=== PATIENT | female | born 1965 | race Caucasian/White ===

== ENCOUNTER → 2016-04-23 | Outpatient (CLI) | payer OTHER ==
--- NOTE | 2016-04-23 13:50 | XR ---
EXAMINATION TYPE: XR knee limited bilateral DATE OF EXAM: 04/23/2016 1:38 PM CLINICAL HISTORY: Bilateral knee pain, left worse than right. TECHNIQUE: 2 views of the bilateral knees are obtained. COMPARISON: None. FINDINGS: There is no acute fracture/dislocation evident in either knee. There is mild symmetric keyur nt space loss patellofemoral compartments. There is mild symmetric joint space loss medial tibiofemor al compartments. No significant spurring is present bilaterally. The overlying soft tissue appears u nremarkable. IMPRESSION: There is symmetric mild degenerative changes in both knees.
--- NOTE | 2016-04-26 09:23 | MM ---
Reason for exam: screening (asymptomatic). Baseline mammogram. Physical Findings: Nurse did not find any significant physical abnormalities on exam. MG Screening Mammo w CAD Bilateral CC, MLO, and XCCL view(s) were taken. There are scattered fibroglandular densities. There is no discrete abnormality. No significant changes when compared with prior studies. ASSESSMENT: Negative, BI-RAD 1 RECOMMENDATION: Routine screening mammogram of both breasts in 1 year.
== END | disposition home or self-care (01) ==
LOC: RADXRMAIN 13:18
PROVIDERS: ATTEND Family Medicine
DX: Z12.31 Encounter for screening mammogram for malignant neoplasm of breast (principal); M25.861 Other specified joint disorders, right knee; M25.862 Other specified joint disorders, left knee
CPT/HCPCS: 73560; G0202

== ENCOUNTER → 2016-06-18 | Outpatient (CLI) | payer OTHER ==
--- NOTE | 2016-06-18 15:33 | MR ---
EXAMINATION TYPE: MR knee LT wo con DATE OF EXAM: 06/18/2016 9:57 AM COMPARISON: Plain film April 2016 HISTORY: Left knee pain TECHNIQUE: Multiplanar, multisequence imaging of the left knee is performed without IV contrast. FINDINGS: MEDIAL MENISCUS: Stellate increased signal is present at the lateral and posterior aspect of the post erior horn of the medial meniscus compatible with tear. LATERAL MENISCUS: Anterior and posterior horns are intact without tear. CRUCIATE LIGAMENTS: The anterior and posterior cruciate ligaments are intact and unremarkable. COLLATERAL LIGAMENTS: The medial collateral ligament and lateral collateral ligament complex are inta ct and unremarkable. EXTENSOR MECHANISM: Visualized quadriceps and patellar tendons are intact. EFFUSION: Suprapatellar joint effusion is small. POPLITEAL CYST: No popliteal/jimenez cyst. TRICOMPARTMENT SPACES: Intact CARTILAGE: No significant chondromalacia is evident BONE MARROW SIGNAL: Subchondral cyst formation present in the proximal tibia at the intercondylar reg ion. OTHER: No additional significant abnormality is appreciated. IMPRESSION: Findings suggest tear of the posterior horn of the medial meniscus as described. Joint effusion.
== END | disposition home or self-care (01) ==
LOC: RADMRIMAIN 09:02
PROVIDERS: ATTEND Physician Assistant
DX: M25.462 Effusion, left knee (principal)

== ENCOUNTER 2016-10-15 12:12 | Emergency (ER) | payer OTHER ==
[2016-10-15] MEDS ORDERED: HYDROmorphone 1 MG/ML 1 ML SYRINGE IVP STA (12:44)
[2016-10-15] MEDS ORDERED: ONDANSETRON 4 MG/2 ML VIAL IVP STA (12:44)
[2016-10-15] MEDS ORDERED: SODIUM CHLORIDE 0.9% 1,000 ML IV STA (12:44)
--- NOTE | 2016-10-15 12:47 | ED ---
General Adult HPI - General Chief complaint: Abdominal Pain Stated complaint: Abd Pain Time Seen by Provider: 10/15/16 12:38 Source: patient, RN notes reviewed Mode of arrival: ambulatory Limitations: no limitations - History of Present Illness Initial comments: Patient's 51-year-old female who presents emergency room today with chief complaint of abdominal pain times one week. She does admit that she's been experiencing some pain in the lower abdomen. States that she's had some diarrhea over the last 3 days. Does admit that she seemed her family doctor was started on Cipro and Flagyl just 2 days ago. Patient states pain getting worse. States family doctor advised come here to the emergency room. Patient does admit to some pain that radiates around to the back that started approximate 4 days ago. Patient denies any other complaints symptoms at this time. Patient denies any recent fever, chills, shortness of breath, chest pain, back pain, abdominal pain, nausea or vomiting, numbness or tingling, dysuria or hematuria, constipation or diarrhea, headaches or visual changes, or any other complaints. - Related Data Home Medications Medication Instructions Recorded Confirmed Losartan/Hydrochlorothiazide 1 tab PO DAILY 11/13/15 10/15/16 [Hyzaar 100-25 Tablet] Montelukast Sodium [Singulair] 10 mg PO HS 11/13/15 10/15/16 Ciprofloxacin HCl [Cipro] 500 mg PO BID 10/15/16 10/15/16 Pantoprazole [Protonix] 40 mg PO DAILY 10/15/16 10/15/16 Sucralfate [Carafate] 1 gm PO TID 10/15/16 10/15/16 Tiotropium 18 Mcg/Puff [Spiriva] 1 cap INHALATION RT-DAILY 10/15/16 10/15/16 metroNIDAZOLE [Flagyl] 500 mg PO Q8HR 10/15/16 10/15/16 Allergies Allergy/AdvReac Type Severity Reaction Status Date / Time cephalexin monohydrate Allergy Rash/Hives,yeast Verified 10/15/16 13:19 [From Keflex] infection latex Allergy Itching, Verified 10/15/16 13:19 hives pecan,almonds Allergy Severe Anaphylaxis Uncoded 11/13/15 15:04 Review of Systems ROS Statement: Those systems with pertinent positive or pertinent negative responses have been documented in the HPI. ROS Other: All systems not noted in ROS Statement are negative. Past Medical History Past Medical History: No Reported History History of Any Multi-Drug Resistant Organisms: None Reported Past Surgical History: Orthopedic Surgery Past Psychological History: No Psychological Hx Reported Smoking Status: Never smoker Past Alcohol Use History: None Reported Past Drug Use History: None Reported General Exam - General Exam Comments Initial Comments: General: The patient is awake and alert, in no distress, and does not appear acutely ill. Eye: Pupils are equal, round and reactive to light, extra-ocular movements are intact. No nystagmus. There is normal conjunctiva bilaterally. No signs of icterus. Ears, nose, mouth and throat: There are moist mucous membranes and no oral lesions. Neck: The neck is supple, there is no tenderness or JVD. Cardiovascular: There is a regular rate and rhythm. No murmur, rub or gallop is appreciated. Respiratory: Lungs are clear to auscultation, respirations are non-labored, breath sounds are equal. No wheezes, stridor, rales, or rhonchi. Gastrointestinal: Normal appearance. Normal bowel sounds. Abdomen soft on palpation. Patient does have tenderness midline lower abdomen. Mild tenderness in the right CVA. No rebound or guarding. Musculoskeletal: Normal ROM, no tenderness. Strength 5/5. Sensation intact. Pulses equal bilaterally 2+. Neurological: A&O x 3. CN II-XII intact, There are no obvious motor or sensory deficits. Coordination appears grossly intact. Speech is normal. Skin: Skin is warm and dry and no rashes or lesions are noted. Psychiatric: Cooperative, appropriate mood & affect, normal judgment. Limitations: no limitations Course Vital Signs 10/15/16 10/15/16 12:24 15:25 Temperature 99.5 F 97.5 F L Pulse Rate 88 70 Respiratory 20 16 Rate Blood Pressure 165/91 139/94 O2 Sat by Pulse 98 96 Oximetry Medical Decision Making - Medical Decision Making CT reviewed unremarkable for any acute findings to account for patient's symptoms at this time. Patient currently on Cipro Flagyl. Patient's labs been reviewed. At this time patient is advised to continue with his antibiotics and follow-up the family doctor over the next 2 days. Advised return here to emergency room if any symptoms increase or worsen or for any other concerns. Patient states understanding and is in agreement with plan. - Lab Data Result diagrams: 10/15/16 13:03 10/15/16 13:03 Lab Results 10/15/16 10/15/16 10/15/16 Range/Units 13:03 13:03 13:03 WBC 10.6 (3.8-10.6) k/uL RBC 5.13 (3.80-5.40) m/uL Hgb 14.6 (11.4-16.0) gm/dL Hct 43.9 (34.0-46.0) % MCV 85.5 (80.0-100.0) fL MCH 28.4 (25.0-35.0) pg MCHC 33.3 (31.0-37.0) g/dL RDW 15.3 (11.5-15.5) % Plt Count 374 (150-450) k/uL Neutrophils % 65 % Lymphocytes % 25 % Monocytes % 6 % Eosinophils % 1 % Basophils % 0 % Neutrophils # 6.9 (1.3-7.7) k/uL Lymphocytes # 2.7 (1.0-4.8) k/uL Monocytes # 0.6 (0-1.0) k/uL Eosinophils # 0.1 (0-0.7) k/uL Basophils # 0.1 (0-0.2) k/uL Sodium 139 (137-145) mmol/L Potassium 3.5 (3.5-5.1) mmol/L Chloride 99 (98-107) mmol/L Carbon Dioxide 27 (22-30) mmol/L Anion Gap 13 mmol/L BUN 14 (7-17) mg/dL Creatinine 0.72 (0.52-1.04) mg/dL Est GFR (MDRD) Af Amer >60 (>60 ml/min/1.73 sqM) Est GFR (MDRD) Non-Af >60 (>60 ml/min/1.73 sqM) Glucose 82 (74-99) mg/dL Plasma Lactic Acid [place] (0.7-2.0) mmol/L Calcium 9.4 (8.4-10.2) mg/dL Total Bilirubin 0.6 (0.2-1.3) mg/dL AST 42 H (14-36) U/L ALT 49 (9-52) U/L Alkaline Phosphatase 79 (38-126) U/L Total Protein 8.0 (6.3-8.2) g/dL Albumin 4.3 (3.5-5.0) g/dL Amylase <30 L (30-110) U/L Lipase 60 (23-300) U/L Urine Color Urine Appearance (Clear) Urine pH (5.0-8.0) Ur Specific [place] (1.001-1.035) Urine Protein (Negative) Urine Glucose (UA) (Negative) Urine Ketones (Negative) Urine Blood (Negative) Urine Nitrite (Negative) Urine Bilirubin (Negative) Urine Urobilinogen (<2.0) mg/dL Ur Leukocyte Esterase (Negative) Urine RBC (0-5) /hpf Urine WBC (0-5) /hpf Ur Squamous Epith Cells (0-4) /hpf Urine Bacteria (None) /hpf Urine Mucus (None) /hpf Urine HCG, Qual Not Detected (Not Detectd) 10/15/16 10/15/16 Range/Units 13:03 13:03 WBC (3.8-10.6) k/uL RBC (3.80-5.40) m/uL Hgb (11.4-16.0) gm/dL Hct (34.0-46.0) % MCV (80.0-100.0) fL MCH (25.0-35.0) pg MCHC (31.0-37.0) g/dL RDW (11.5-15.5) % Plt Count (150-450) k/uL Neutrophils % % Lymphocytes % % Monocytes % % Eosinophils % % Basophils % % Neutrophils # (1.3-7.7) k/uL Lymphocytes # (1.0-4.8) k/uL Monocytes # (0-1.0) k/uL Eosinophils # (0-0.7) k/uL Basophils # (0-0.2) k/uL Sodium (137-145) mmol/L Potassium (3.5-5.1) mmol/L Chloride (98-107) mmol/L Carbon Dioxide (22-30) mmol/L Anion Gap mmol/L BUN (7-17) mg/dL Creatinine (0.52-1.04) mg/dL Est GFR (MDRD) Af Amer (>60 ml/min/1.73 sqM) Est GFR (MDRD) Non-Af (>60 ml/min/1.73 sqM) Glucose (74-99) mg/dL Plasma Lactic Acid [place] 1.0 (0.7-2.0) mmol/L Calcium (8.4-10.2) mg/dL Total Bilirubin (0.2-1.3) mg/dL AST (14-36) U/L ALT (9-52) U/L Alkaline Phosphatase (38-126) U/L Total Protein (6.3-8.2) g/dL Albumin (3.5-5.0) g/dL Amylase (30-110) U/L Lipase (23-300) U/L Urine Color Yellow Urine Appearance Cloudy H (Clear) Urine pH 5.5 (5.0-8.0) Ur Specific [place] 1.019 (1.001-1.035) Urine Protein Trace H (Negative) Urine Glucose (UA) Negative (Negative) Urine Ketones Trace H (Negative) Urine Blood Small H (Negative) Urine Nitrite Negative (Negative) Urine Bilirubin Negative (Negative) Urine Urobilinogen <2.0 (<2.0) mg/dL Ur Leukocyte Esterase Trace H (Negative) Urine RBC 9 H (0-5) /hpf Urine WBC 2 (0-5) /hpf Ur Squamous Epith Cells 3 (0-4) /hpf Urine Bacteria Occasional H (None) /hpf Urine Mucus Occasional H (None) /hpf Urine HCG, Qual (Not Detectd) Disposition Clinical Impression: Abdominal pain Disposition: HOME SELF-CARE Condition: Good Instructions: Abdominal Pain (ED) Additional Instructions: Please use medication as discussed. Please follow-up with family doctor in the next 2 days of symptoms have not improved. Please return to emergency room if the symptoms increase or worsen or for any other concerns. Referrals: Vernon Santiago DO [Primary Care Provider] - 1-2 days Time of Disposition: 17:12
[2016-10-15 13:24] LABS: Basophils # (A) 0.1 k/uL (0-0.2); Basophils % (A) 0 %; CH 28.8; CHCM 33.8; Eosinophils # (A) 0.1 k/uL (0-0.7); Eosinophils % (A) 1 %; HCT 43.9 % (34.0-46.0); HDW 2.48; HGB 14.6 gm/dL (11.4-16.0); Luc # (Auto) 0.31; Luc % (Auto) 3; Lymphocytes # (A) 2.7 k/uL (1.0-4.8); Lymphocytes % (A) 25 %; MCH 28.4 pg (25.0-35.0); MCHC 33.3 g/dL (31.0-37.0); MCV 85.5 fL (80.0-100.0); Mean Platelet Volume 8.5; Monocytes # (A) 0.6 k/uL (0-1.0); Monocytes % (A) 6 %; Neutrophils # (A) 6.9 k/uL (1.3-7.7); Neutrophils % (A) 65 %; RBC 5.13 m/uL (3.80-5.40); RDW 15.3 % (11.5-15.5); WBC 10.6 k/uL (3.8-10.6); WBC (Perox) 10.49
[2016-10-15 13:31] LABS: ALT 49 U/L (9-52); AST 42 U/L (14-36); Alkaline Phosphatase 79 U/L (38-126); Amylase <30 U/L (30-110); Anion Gap 13 mmol/L; Blood Urea Nitrogen 14 mg/dL (7-17); Calcium 9.4 mg/dL (8.4-10.2); Carbon Dioxide 27 mmol/L (22-30); Chloride 99 mmol/L (98-107); Glucose 82 mg/dL (74-99); Non-African American GFR(MDRD) >60 (>60 ml/min/1.73 sqM); Potassium 3.5 mmol/L (3.5-5.1); Sodium 139 mmol/L (137-145); Total Bilirubin 0.6 mg/dL (0.2-1.3)
[2016-10-15 13:41] LABS: Appearance,Urine Cloudy (Clear); Bacteria,Urine Occasional /hpf; Bilirubin,Urine Negative (Negative); Glucose,Urine (UA) Negative (Negative); Ketones,Urine Trace (Negative); Leukocyte Esterase,Urine Trace (Negative); Mucus,Urine Occasional /hpf; Nitrite,Urine Negative (Negative); PH, Urine 5.5 (5.0-8.0); Particle Count 4718; Protein,Urine Trace (Negative); RBC,Urine 9 /hpf (0-5); Specific Gravity,Urine 1.019 (1.001-1.035); Squamous Epithelial Cell,Urine 3 /hpf (0-4); UA Billing (MACRO vs. MICRO) MICRO; Urobilinogen,Urine <2.0 mg/dL (<2.0); WBC,Urine 2 /hpf (0-5)
[2016-10-15] MEDS ORDERED: RX INFO: IV CONTRAST WAS GIVEN 1 EACH MISC MISCELLANE PRN (14:24)
[2016-10-15 15:26] VITALS: RESP 16
--- NOTE | 2016-10-15 16:22 | CT ---
EXAMINATION TYPE: CT abdomen pelvis w con DATE OF EXAM: 10/15/2016 REFERENCE: NONE HISTORY: Pain REFERENCE: NONE CT DLP: 1793.00 mGy Automated exposure control for dose reduction was used. TECHNIQUE: Helical acquisition through the abdomen and pelvis was obtained following the oral ingesti on of without Oral Contrast and following intravenous administration of 100 mL of Omnipaque 300. The data was reformatted in axial, coronal and sagittal projections. FINDINGS: Visualized portions of the lungs are clear. There is no pleural or pericardial fluid. The heart is at the upper limits of normal in size. There is a small hiatal hernia. Within the abdomen, the liver is prominent measuring 23 cm. This is largely due to a Starr's lobe. T here is marked fatty infiltration of the liver. The spleen and gallbladder are normal. Both adrenal glands are normal. The pancreas is unremarkable. Both kidneys demonstrate function and appear morphologically normal. There is no significant retroperitoneal, iliac or inguinal adenopathy. The bladder is not distended. The uterus is unremarkable. There is a 2.8 cm left ovarian cyst. There is no significant diverticular change and there is no radiographic evidence of diverticulitis. The appendix is normal. Small bowel loops are normal. There is a small umbilical hernia containing fat only with a mouth measuring 7 mm. There is no free fluid and no free air identified. There is mild facet arthropathy in the lower lumbar facets. There is minimal hypertrophic spondylosis in the dorsal spine. IMPRESSION: 1. HEPATOMEGALY AND FATTY INFILTRATION OF THE LIVER. 2. SMALL HIATAL HERNIA. 3. SMALL UMBILICAL HERNIA CONTAINING FAT ONLY. 4. MILD DEGENERATIVE CHANGES WITHIN THE SPINE. 5. 2.8 CM, LEFT OVARIAN CYST. 6. MILD DEGENERATIVE CHANGES WITHIN THE SPINE. 7. NORMAL APPENDIX.
[2016-10-15 17:23] VITALS: BP 130/84; PULSE 80; TEMP 98.5
== END 2016-10-15 17:24 | disposition home or self-care (01) ==
LOC: EC 12:12
DX: R10.30 Lower abdominal pain, unspecified (principal); R19.7 Diarrhea, unspecified; M54.9 Dorsalgia, unspecified; Z79.899 Other long term (current) drug therapy; Z88.1 Allergy status to other antibiotic agents; Z91.040 Latex allergy status; Z91.018 Allergy to other foods
CPT/HCPCS: 99284; 96374; 96375; 36415; 80053; 82150; 83605; 83690; 85025; 81001; 81025; 74177; J2405; J1170; Q9967

== ENCOUNTER → 2017-04-04 | Outpatient (CLI) | payer OTHER ==
--- NOTE | 2017-04-04 09:37 | US ---
EXAMINATION TYPE: US abdomen complete DATE OF EXAM: 04/04/2017 COMPARISON: Correlation CT 10/15/2016 CLINICAL HISTORY: 52-year-old female Right upper quad pain R10.11,Nausea R11.0; Hiatal Hernia, Umbili roslyn hernia, and fatty liver per CT; GERD; on medication for asthma; HT 5'8, WT 276lbs Technique: Multiple sonographic images of the abdomen are obtained. FINDINGS: Liver Length: 20.5 cm Gallbladder Wall: 0.2 cm CBD: 0.2 cm Spleen: 11.3 cm Right Kidney: 12.8 x 5.7 x 4.4 cm Left Kidney: 12.4 x 5.8 x 5.2 cm Pancreas: Only a small portion of the pancreatic body is seen. Remainder is suboptimally visualized secondary to shadowing from bowel gas. Liver: Echogenic, attenuating, an enlarged. This secondarily limits assessment for focal lesion. Gallbladder: wnl Evidence for sonographic Grider's sign: No CBD: wnl Spleen: wnl Right Kidney: No hydronephrosis Left Kidney: No hydronephrosis Upper IVC: Suboptimal visualization Abd Aorta: wnl IMPRESSION: Hepatomegaly (20.5 cm) with at least moderate to severe hepatic steatosis. Correlate with LFTs, lipid profile, and patient risk factors.
== END | disposition home or self-care (01) ==
LOC: RADUSWWP 06:47
PROVIDERS: ATTEND Family Medicine
DX: R16.0 Hepatomegaly, not elsewhere classified (principal); K76.0 Fatty (change of) liver, not elsewhere classified
CPT/HCPCS: 76700

== ENCOUNTER → 2018-07-31 | Outpatient (CLI) | payer BC ==
--- NOTE | 2018-07-31 16:18 | CT ---
EXAMINATION TYPE: CT abdomen w con DATE OF EXAM: 07/31/2018 COMPARISON: Prior CT 10/15/2016 HISTORY: Generalized abdominal pain and nausea x2 days. CT DLP: 1842.5 mGycm Automated exposure control for dose reduction was used. TECHNIQUE: Helical acquisition of images was performed from the lung bases through the top of iliac crest to include entire abdomen. CONTRAST: Performed with Oral Contrast and with IV Contrast, patient injected with 100ml mL of Isovue 300. FINDINGS: LUNG BASES: No significant abnormality is appreciated. LIVER/GB: Liver shows low attenuation possibly due to hepatic steatosis with focal fatty sparing kike cent to the gallbladder, possibly along the lateral aspect of the dome of the diaphragm, gallbladder is normal. Liver is enlarged.. PANCREAS: No significant abnormality is seen. SPLEEN: No significant abnormality is seen. ADRENALS: No significant abnormality is seen. KIDNEYS: No significant abnormality is seen. BOWEL: Some wall thickening noted in the distal duodenum, proximal jejunum. LYMPH NODES: No significant abnormality is appreciated. OSSEOUS STRUCTURES: Degenerative disc changes are noted in the lower lumbar spine.. FREE AIR: No Free Air visible ASCITES: None visible. RETROPERITONEAL ADENOPATHY: No Retroperitoneal Adenopathy visible. OTHER: IMPRESSION: There may be underlying enteritis. Probable hepatic steatosis with areas of focal fatty sparing, foll ow-up could be performed to assess for stability or alternatively MRI may be of increased sensitivity and specificity.
== END | disposition home or self-care (01) ==
LOC: RADCTMAIN 15:10
PROVIDERS: ATTEND Physician Assistant
DX: R10.84 Generalized abdominal pain (principal); R11.0 Nausea
CPT/HCPCS: 74160; Q9967

== ENCOUNTER → 2018-08-16 | Outpatient (CLI) | payer BC ==
--- NOTE | 2018-08-16 15:50 | XR ---
EXAMINATION TYPE: XR lumbar spine 2 or 3V DATE OF EXAM: 08/16/2018 CLINICAL HISTORY: pain TECHNIQUE: Three views of the lumbar spine are submitted. COMPARISON: None. FINDINGS: Curvature noted convex to the left. Moderate to severe multilevel degenerative disc space narrowing i s seen. No evidence for fracture or malalignment. IMPRESSION: No acute fracture or dislocation is seen in the lumbar spine. ICD 10 NO FRACTURE, INITIAL EVALUATION
== END | disposition home or self-care (01) ==
LOC: RADXRYALE 15:33
PROVIDERS: ATTEND Family Medicine
DX: M51.36 Other intervertebral disc degeneration, lumbar region (principal)
CPT/HCPCS: 72100

== ENCOUNTER → 2019-01-11 | Outpatient (CLI) | payer BC ==
[2019-01-11 11:38] VITALS: PULSE 84; RESP 16
[2019-01-11 11:54] VITALS: BP 174/100
--- NOTE | 2019-01-11 12:19 | P.PAINCN ---
History of Present Illness - Reason for Consult Consult date: 01/11/19 - History of Present Illness This is initial consultation visit for this 53 years old female with 2 month history of severe low back pain with radiation to the right lower extremity, she denies any initiating event and the pain is constant and increases with any activity, and she feels there is weakness in her right lower extremity associated with leg cramp, she tried physical therapy and oral steroid and pain medication Ultram without any significant improvement, the pain is constant and increases with sitting and walking changing position, denies any change in bowel movement or urination she denies any fever or night sweats Past Medical History Past Medical History: Asthma, GERD/Reflux, Hypertension Additional Past Medical History / Comment(s): Osteoarthitis in Right knee and R ankle History of Any Multi-Drug Resistant Organisms: None Reported Past Surgical History: Section, Orthopedic Surgery, Tubal Ligation Additional Past Surgical History / Comment(s): Right knee arthroscopy x 2 - removed bone chip and repaired meniscus; cleaned up scar tissue and tearing; 2015. Right ankle surgery - 1979. Hysteroscopy with ablation Smoking Status: Former smoker Medications and Allergies Home Medications Medication Instructions Recorded Confirmed Type Losartan/Hydrochlorothiazide 1 tab PO DAILY 11/13/15 01/11/19 History [Hyzaar 100-25 Tablet] Montelukast Sodium [Singulair] 10 mg PO HS 11/13/15 01/11/19 History Pantoprazole [Protonix] 40 mg PO DAILY 10/15/16 01/11/19 History Acetaminophen [Tylenol Extra 1,000 mg PO Q8HR PRN 01/11/19 01/11/19 History Strength] Albuterol Inhaler [Ventolin Hfa 1 - 2 puff INHALATION RT-Q6H 01/11/19 01/11/19 History Inhaler] Albuterol Nebulized [Ventolin 2.5 mg INHALATION Q4-6H PRN 01/11/19 01/11/19 History Nebulized] Biotin 1 mg PO DAILY 01/11/19 01/11/19 History Cyclobenzaprine [Flexeril] 1 tab PO HS PRN 01/11/19 01/11/19 History Fexofenadine/Pseudoephedrine 1 each PO BID PRN 01/11/19 01/11/19 History [Nubia-D 12 Hour Tablet] Fluticasone Nasal [place] [Flonase 1 spray EA NOSTRIL BID PRN 01/11/19 01/11/19 History Nasal [place]] Gabapentin [Neurontin] 300 mg PO BID 01/11/19 01/11/19 History Indomethacin [Indocin] 50 mg PO DAILY 01/11/19 01/11/19 History Ranitidine HCl [Zantac] 150 mg PO HS 01/11/19 01/11/19 History Tiotropium [place] [Spiriva 2 puff IH DAILY 01/11/19 01/11/19 History Respimat] Tumeric 1 tab PO DAILY 01/11/19 History Allergies Allergy/AdvReac Type Severity Reaction Status Date / Time cephalexin monohydrate Allergy Rash/Hives,yeast Verified 01/11/19 11:13 [From Keflex] infection latex Allergy Itching, Verified 01/11/19 11:13 hives pecan,almonds Allergy Severe Anaphylaxis Uncoded 01/11/19 11:13 Physical Exam Vitals: Vital Signs Pulse Resp BP Pulse Ox 01/11/19 11:51 84 16 174/100 98 01/11/19 11:16 84 16 170/100 98 Intake and Output 01/10/19 01/11/19 01/11/19 22:59 06:59 14:59 Other: Weight 122.47 kg REVIEW OF ORGAN SYSTEMS: CONSTITUTIONAL: No fevers or chills. No recent weight loss. EYES: History of troubles with vision. No glasses. HEENT: No difficulties with hearing. No nosebleeds. No difficulty swallowing. RESPIRATORY: Past pneumonia. Denies any troubles with breathing or dyspnea on exertion. CARDIOVASCULAR: Denies any chest pain, palpitations, or recent heart attacks. GASTROINTESTINAL: Denies fatty food intolerance. Has change in bowel habits and gas bloat. GENITOURINARY: Denies any blood in urine. Has increased urinary frequency. NEUROLOGICAL: numbness and tingling along the right lower extremitie. No seizure disorders or headaches. MUSCULOSKELETAL: Has back pain, stiffness or joint arthritis. SKIN: Past t skin cancer. No rash. PSYCHIATRIC: Denies current depression or suicidal thoughts. ENDOCRINE: Denies current thyroid disorders. Denies any blood sugar glucose intolerance. HEME/LYMPHATIC: Denies any lumps and bumps around the neck. History of deep venous thrombosis. ALLERGY/IMMUNOLOGY: No immunoglobulin therapy. No immune deficiencies. BREAST: Denies current breast lumps, pain or nipple discharge. Physical Examinations : Constitutiona : Cooperative , not in acute distress . HEENT : nech : supple , no Lymphadenopathy , normal thyroid size . eyes : no ptosis , no icterus, no photophobia . neurologic : Cranial nerve II to XII intact , no focal neurological deffecit . psychatric : alert , oriented X 3 , appropriate affect , intact judgment and insight . Lymphatic : no Lymphadenopathy . musculoskeltal : Lumber spine moter stegnth lower extremities ,thigh and legs 4/5 Right side , 5/5 Left side deep tendon reflexes : normal Knee Jerk , normal ankle Jerk positive lumber facet Loading Test Range of motion of the lumbar spine Flexion 30 degrees, extension 10 degrees strait leg raising test , positive at 60 degree on the right side and is negative on the left side Fabere test positive RT and negative LT . Results Comments: MRI of the lumbar spine L2-3 and L3 4 and L4-L5 disc desiccation and bulging disc disease Assessment and Plan Plan: Assessment and plan= lumbar radiculopathy, lumbar degenerative disc disease Patient could benefit from lumbar epidural steroid injection at L3 4 right paramedian approach under fluoroscopy guidance Time with Patient: Greater than 30 PQRS Measure Charge Sheet Measure #130: Documentation of Current Meds in Medical Chart: Patient's medications documented in chart Measure #226: Tobacco Use: Screen & Cessation Intervention: Pt not a tobacco user Measure #111: Pneumonia Vaccination: Pneumococcal vaccine NOT administered or previously given Measure #47: Advance Care Plan: Advance care planning discussed & documented, pt chose/unable to give Measure #412: Opioid Treatment Agreement: No documentation of signed opioid treatment agreement Measure #408: Opioid Therapy Follow-up Evaluation: Patient had NO f/u eval minimum every 3 months during opioid therapy Measure #317: Preventitive Care & Scrn High Bld Press & F/U: Pre-hypertensive or hypertensive BP documented, pt will f/u with PCP Measure #128: Body Mass Index (BMI) Screening & Follow-up: BMI documented ABOVE normal parameters - f/u documented Measure #131: Pain Assessment & Follow-up: Pain positive & plan documented, Follow-up scheduled Measure #431: Unhealthy Alcohol Use Preventative Care & Scrn: Patient not identified as an unhealthy alcohol user PQRS Narrative: Smoking Status Former smoker Blood Pressure 174/100 Pain Intensity [Right Lower 8 Back] Scale Used Numeric (1 - 10) Hx Alcohol Use (MH) No Home Medications: Ambulatory Orders Losartan/Hydrochlorothiazide [Hyzaar 100-25 Tablet] 1 tab PO DAILY 11/13/15 Montelukast Sodium [Singulair] 10 mg PO HS 11/13/15 Pantoprazole [Protonix] 40 mg PO DAILY 10/15/16 Acetaminophen [Tylenol Extra Strength] 1,000 mg PO Q8HR PRN 01/11/19 Albuterol Inhaler [Ventolin Hfa Inhaler] 1 - 2 puff INHALATION RT-Q6H 01/11/19 Albuterol Nebulized [Ventolin Nebulized] 2.5 mg INHALATION Q4-6H PRN 01/11/19 Biotin 1 mg PO DAILY 01/11/19 Cyclobenzaprine [Flexeril] 1 tab PO HS PRN 01/11/19 Fexofenadine/Pseudoephedrine [Nubia-D 12 Hour Tablet] 1 each PO BID PRN 01/11/19 Fluticasone Nasal [place] [Flonase Nasal [place]] 1 spray EA NOSTRIL BID PRN 01/11/19 Gabapentin [Neurontin] 300 mg PO BID 01/11/19 Indomethacin [Indocin] 50 mg PO DAILY 01/11/19 Ranitidine HCl [Zantac] 150 mg PO HS 01/11/19 Tiotropium [place] [Spiriva Respimat] 2 puff IH DAILY 01/11/19 Tumeric 1 tab PO DAILY 01/11/19
== END ==
LOC: PNWHC3 11:05
PROVIDERS: ATTEND Specialist
DX: M51.16 Intervertebral disc disorders with radiculopathy, lumbar region (principal); Z87.891 Personal history of nicotine dependence; Z79.891 Long term (current) use of opiate analgesic; Z88.1 Allergy status to other antibiotic agents; Z91.040 Latex allergy status; Z91.018 Allergy to other foods
CPT/HCPCS: 99211

== ENCOUNTER 2019-01-22 08:07 | Day surgery (SDC) | payer BC ==
[2019-01-18 13:35] VITALS: BMI 41.0
[~2019-01-22 08:07] MED LIST: LACTATED RINGERS 1,000 ML IV SCH
[2019-01-22 08:59] VITALS: RESP 16; TEMP 97.9
[2019-01-22] MEDS ORDERED: LIDOCAINE 1% 20 ML VIAL (10MG/ML) FOR IV START INTRADERMA ONE (09:12)
[2019-01-22] MEDS ORDERED: LACTATED RINGERS 1,000 ML IV ONE (11:13)
[2019-01-22] MEDS ORDERED: KETOROLAC 30 MG/ML 1 ML VIAL IVP ONE (11:23)
--- NOTE | 2019-01-22 11:58 | P.PCN ---
Date of Procedure: 01/22/19 Procedure(s) Performed: PREOPERATIVE DIAGNOSIS: 1- Lumbar radiculopathy, Lumbar Degenerative Disc Diseases 2-Lumbar spondylosis with Facet arthropathy without myelopathy POSTOPERATIVE DIAGNOSIS: 1-Lumber Degenerative Disc Diseases 2-Lumbar spondylosis with Facet arthropathy without myelopathy PROCEDURE 1. Lumbar epidural steroid injection under fluoroscopic guidance at the L4-5 level using a right paramedian approach 2. Lumbar epidurogram. ANESTHESIA: Local with 1% lidocaine 3 ml, moderate sedation with intravenous Versed and fentanyl, sedation time 24 minutes Fluoroscopy was used for the procedure and images were saved in the radiology portion of the chart. EBL: Minimal PROCEDURE INDICATION: The patient with low back pain and radiculitis symptoms unresponsive to conservative treatment. Fluoroscopy was used to optimize visualization of the needle placement and to maximize safety. PROCEDURE DESCRIPTION / TECHNIQUE: The patient was seen and identified in the preoperative area. Risks, benefits, complications including but not limited to infections ,bleeding ,allergic reaction to the medications ,nerve damage and incomplete pain releif , and alternatives were discussed with the patient. The patient agreed to proceed with the procedure and signed the consent. IV was started, and vital signs were stable. Patient was taken to the OR and time out was completed. The patient was placed in the prone position on procedure table and a pillow was placed under the abdomen to reduce lumbar lordosis. The lumbosacral area was prepped and draped in the usual sterile fashion. Vitals were closely monitored during the procedure. Conscious sedation was used during the procedure to decrease patients anxiety. Using anterior-posterior fluoroscopy, the L4-5 interlaminar space was identified and the skin over this site was marked and then infiltrated with 1% lidocaine subcutaneously. Subsequently, an 18 G 5" Tuohy epidural needle was inserted and advanced toward the epidural space using the loss of resistance technique and guided by AP and lateral/ oblique fluoroscopy. The correct needle position in the epidural space was verified with the injection of 2 mL of the water soluble contrast dye Isovue 200 contrast under live fluoroscopy, observing an excellent epidurogram. Then, after negative aspiration for blood and CSF and in the absence of paresthesias, a 5 ml mixture containing 80 mg of Depo-medrol , 3 ml of preservative free Normal Saline, and 1 ml of preservative free lidocaine 1% solution was injected and a washout epidurogram was seen. Needle was withdrawn intact, skin was cleansed, and bandages were applied. COMPLICATIONS: Initial attempt was at L3-4, resulted in a wet tap. Procedure was repeated at L4-5, without complications. Patient was given spinal tap instructions, and kept flat in the recovery room for 2 hours prior to discharge. She was told to call the pain clinic if she developed headache. DISPOSITION / PLANS: The patient was placed in a supine position and transferred to the recovery area in a stable condition for observation. There was no evidence of lower extremity motor or sensory deficit after the procedure. Patient was discharged from the recovery room after meeting discharge criteria. Home discharge instructions were given to the patient by the staff. The patient will schedule a follow up in the clinic in 2-4 weeks.
[2019-01-22 12:29] VITALS: BP 133/86; PULSE 64
--- NOTE | 2019-01-22 13:04 | FL ---
EXAMINATION TYPE: FL guided pain mgmt statistic DATE OF EXAM: 01/22/2019 CLINICAL HISTORY: Low back pain. TECHNIQUE: Fluoroscopy. COMPARISON: None. FINDINGS: Fluoroscopic guidance was provided during pain relief procedure performed by Dr. Mattson. A total of 15 seconds of fluoroscopic time was utilized during the procedure and 6 spot images are acq uired. Images acquired shows needle localization over the lumbar spine. IMPRESSION: As Above.
== END 2019-01-22 13:22 | disposition home or self-care (01) ==
LOC: ORPAIN 08:07
PROVIDERS: ATTEND Anesthesiology
DX: M47.26 Other spondylosis with radiculopathy, lumbar region (principal); M51.16 Intervertebral disc disorders with radiculopathy, lumbar region; J45.909 Unspecified asthma, uncomplicated; K21.9 Gastro-esophageal reflux disease without esophagitis; I10 Essential (primary) hypertension; Z87.891 Personal history of nicotine dependence; Z98.51 Tubal ligation status; M19.071 Primary osteoarthritis, right ankle and foot; M17.11 Unilateral primary osteoarthritis, right knee; Z79.1 Long term (current) use of non-steroidal anti-inflammatories (NSAID); Z79.899 Other long term (current) drug therapy; Z88.1 Allergy status to other antibiotic agents; Z91.040 Latex allergy status; Z91.018 Allergy to other foods
CPT/HCPCS: 81025; 62323; J2250; J1030; J3010; J1885; Q9966; 99152; 99153

== ENCOUNTER → 2019-02-19 | Day surgery (SDC) | payer BC ==
[2019-02-13 15:02] VITALS: BMI 40.3
[~2019-02-19] MED LIST changes: +IV FLUID CONTINUATION 475 ML IV ONE; +LIDOCAINE 1% 20 ML VIAL (10MG/ML) FOR IV START INTRADERMA ONE
[2019-02-19 08:32] VITALS: TEMP 97.2
--- NOTE | 2019-02-19 10:03 | FL ---
EXAMINATION TYPE: FL guided pain mgmt statistic DATE OF EXAM: 02/19/2019 CLINICAL HISTORY: Low back pain. TECHNIQUE: Fluoroscopy. COMPARISON: None. FINDINGS: Fluoroscopic guidance was provided during pain relief procedure performed by Dr. Amanda . A total of 11 seconds of fluoroscopic time was utilized during the procedure and two spot images are ac quired. Images acquired shows needle localization in the lower lumbar spine. IMPRESSION: As Above.
--- NOTE | 2019-02-19 10:24 | P.PCN ---
Date of Procedure: 02/19/19 Procedure(s) Performed: PREOPERATIVE DIAGNOSIS: 1- Lumbar radiculopathy, Lumbar Degenerative Disc Diseases 2-Lumbar spondylosis with Facet arthropathy without myelopathy POSTOPERATIVE DIAGNOSIS: 1-Lumber Degenerative Disc Diseases 2-Lumbar spondylosis with Facet arthropathy without myelopathy PROCEDURE 1. Lumbar epidural steroid injection under fluoroscopic guidance at the L4-5 level using a right paramedian approach 2. Lumbar epidurogram. ANESTHESIA: Local with 1% lidocaine 3 ml, moderate sedation with intravenous Versed and fentanyl, sedation time 16 minutes Fluoroscopy was used for the procedure and images were saved in the radiology portion of the chart. EBL: Minimal PROCEDURE INDICATION: The patient with low back pain and radiculitis symptoms unresponsive to conservative treatment. Fluoroscopy was used to optimize visualization of the needle placement and to maximize safety. PROCEDURE DESCRIPTION / TECHNIQUE: The patient was seen and identified in the preoperative area. Risks, benefits, complications including but not limited to infections ,bleeding ,allergic reaction to the medications ,nerve damage and incomplete pain releif , and alternatives were discussed with the patient. The patient agreed to proceed with the procedure and signed the consent. IV was started, and vital signs were stable. Patient was taken to the OR and time out was completed. The patient was placed in the prone position on procedure table and a pillow was placed under the abdomen to reduce lumbar lordosis. The lumbosacral area was prepped and draped in the usual sterile fashion. Vitals were closely monitored during the procedure. Conscious sedation was used during the procedure to decrease patients anxiety. Using anterior-posterior fluoroscopy, the L4-5 interlaminar space was identified and the skin over this site was marked and then infiltrated with 1% lidocaine subcutaneously. Subsequently, an 18 G 5" Tuohy epidural needle was inserted and advanced toward the epidural space using the loss of resistance technique and guided by AP and lateral/ oblique fluoroscopy. The correct needle position in the epidural space was verified with the injection of 2 mL of the water soluble contrast dye Isovue 200 contrast under live fluoroscopy, observing an excellent epidurogram. Then, after negative aspiration for blood and CSF and in the absence of paresthesias, a 5 ml mixture containing 80 mg of Depo-medrol , 3 ml of preservative free Normal Saline, and 1 ml of preservative free lidocaine 1% solution was injected and a washout epidurogram was seen. Needle was withdrawn intact, skin was cleansed, and bandages were applied. COMPLICATIONS: Initial attempt was at L3-4, resulted in a wet tap. Procedure was repeated at L4-5, without complications. Patient was given spinal tap instructions, and kept flat in the recovery room for 2 hours prior to discharge. She was told to call the pain clinic if she developed headache. DISPOSITION / PLANS: The patient was placed in a supine position and transferred to the recovery area in a stable condition for observation. There was no evidence of lower extremity motor or sensory deficit after the procedure. Patient was discharged from the recovery room after meeting discharge criteria. Home discharge instructions were given to the patient by the staff. The patient will schedule a follow up in the clinic in 2-4 weeks.
[2019-02-19 11:14] VITALS: RESP 18
[2019-02-19 11:40] VITALS: BP 118/75; PULSE 77
== END ==
LOC: ORPAIN 08:02
PROVIDERS: ATTEND Anesthesiology
DX: M47.26 Other spondylosis with radiculopathy, lumbar region (principal); M51.16 Intervertebral disc disorders with radiculopathy, lumbar region; Z91.040 Latex allergy status; Z88.1 Allergy status to other antibiotic agents
CPT/HCPCS: 81025; 62323; J2250; J1030; J2001; J3010; Q9966

== ENCOUNTER 2019-02-22 06:59 | Day surgery (SDC) | payer BC ==
[2019-02-22] MEDS ORDERED: LACTATED RINGERS 1,000 ML IV ONE (07:27)
[2019-02-22 07:29] VITALS: BP 167/84; PULSE 81; RESP 16; TEMP 98
[2019-02-22 07:29] LABS: Glucose,Whole Blood 94 mg/dL (75-99)
[2019-02-22] MEDS ORDERED: ONDANSETRON 4 MG/2 ML VIAL IVP ONE (08:30)
== END 2019-02-22 08:46 | disposition home or self-care (01) ==
LOC: ORPAIN 06:59
PROVIDERS: ATTEND Anesthesiology
DX: G97.1 Other reaction to spinal and lumbar puncture (principal); Z53.8 Procedure and treatment not carried out for other reasons

== ENCOUNTER → 2019-03-26 | Outpatient (CLI) | payer BC ==
[2019-03-26 14:21] VITALS: BP 141/92; PULSE 65; RESP 16
--- NOTE | 2019-03-29 09:18 | P.PAINPG ---
Subjective Progress Note Date: 03/26/19 This is a follow-up visit for this 54 years old female with 2 month history of severe low back pain with radiation to the right lower extremity, diagnosed with lumbar radiculopathy and lumbar degenerative disc disease. She underwent lumbar epidural steroid injections 2 on 01/27/2019 and 02/19/2019. Unfortunately, both procedures resulted in a wet tap, however the procedure was performed at an alternative level. She developed a headache following the second procedure, however her blood pressure was elevated, the headache characteristics were not resembling post dural puncture headache, she was sent to her primary care office to address elevated blood pressure. She returns today for follow-up. She reports that the first. Procedure provided her good pain relief, lasting more than 2 weeks, however the second procedure did not provide significant relief, although she did have confounding factors of elevated blood pressure and headache. Her pain is rated as 4-8/10, located in the right buttocks, radiating to right posterior thigh. She does note spasms are going to as well. She also endorses numbness and tingling for approximately 2 days and reports that her foot fell asleep. In terms of pain medications, she is taking Indocin, Flexeril, and Tylenol. She states that the Flexeril is primarily helping her to sleep. Today, she is also inquiring about [place] paperwork. She states that her primary care physician fill this out, however it was denied as her treatment has all been at [facility]. Review of systems is negative for chest pain, shortness of breath, new onset weakness, numbness/tingling, abdominal pain, malaise, fever, night sweats, chills, homicidal or suicidal ideation, or bowel or bladder incontinence. Physical Exam Physical exam: Vitals: Reviewed in EMR GENERAL: Well appearing, in no acute distress, obese PSYCH: Mood and affect is appropriate. Awake, alert, and oriented SKIN: Skin color, texture, turgor normal, no rashes or lesions HEENT: Normocephalic, atraumatic. EOM intact CV: No pedal edema RESP: Respirations are unlabored, no audible wheezing GI: Abdomen non-distended MUSCULOSKELETAL: Bilateral lower extremity strength is normal and symmetric. No atrophy or tone abnormalities are noted. Lumbar spine: Straight leg raising in the sitting position is negative for radicular pain. No pain to palpation over the lumbar spine and paraspinous muscles. Negative for pain with facet loading and back extension/rotation. Buttocks: Tenderness to palpation over the right PSIS, right Aline's finger positive, right Felicia's test positive, right sacral thrust positive Extremities: Peripheral joint ROM is full and pain free without obvious instability or laxity in all four extremities. No edema or skin discolorations noted. Gait: Gait is slow, antalgic NEUR: Bilateral lower extremity coordination and muscle stretch reflexes are physiologic and symmetric. Negative clonus bilaterally. No loss of sensation is noted. Results Comments: MRI of the lumbar spine L2-3 and L3 4 and L4-L5 disc desiccation and bulging disc disease Assessment and Plan Plan: Assessment and plan= lumbar radiculopathy, lumbar degenerative disc disease, right SI joint dysfunction We will schedule the patient for right SI joint injection under fluoroscopy. Today, I filled out [place] paperwork for [facility]. In the future, she would likely benefit from physical therapy for SI joint dysfunction as well as low back exercises She was asked to take magnesium Glycinate 400 mg daily [id number] to help with muscle spasms. Patient was counseled on the importance of weight loss as it pertains to chronic pain Follow-up: For above-mentioned procedure PQRS Measure Charge Sheet Measure #130: Documentation of Current Meds in Medical Chart: Patient's medications documented in chart Measure #226: Tobacco Use: Screen & Cessation Intervention: Pt not a tobacco user Measure #111: Pneumonia Vaccination: Pneumococcal vaccine administered or previously given Measure #47: Advance Care Plan: Advance care planning discussed & documented, pt chose/unable to give Measure #412: Opioid Treatment Agreement: No documentation of signed opioid treatment agreement Measure #408: Opioid Therapy Follow-up Evaluation: Patient had NO f/u eval minimum every 3 months during opioid therapy Measure #317: Preventitive Care & Scrn High Bld Press & F/U: Pre-hypertensive or hypertensive BP documented, pt will f/u with PCP Measure #128: Body Mass Index (BMI) Screening & Follow-up: BMI documented ABOVE normal parameters - f/u documented Measure #131: Pain Assessment & Follow-up: Pain positive & plan documented, Follow-up scheduled Measure #431: Unhealthy Alcohol Use Preventative Care & Scrn: Patient not identified as an unhealthy alcohol user PQRS Measure Charge Sheet PQRS Narrative: Smoking Status Former smoker Pain Intensity [Bilateral 8 Buttock] Scale Used Numeric (1 - 10) Hx Alcohol Use (MH) No Home Medications: Ambulatory Orders Losartan/Hydrochlorothiazide [Hyzaar 100-25 Tablet] 1 tab PO DAILY 11/13/15 Montelukast Sodium [Singulair] 10 mg PO HS 11/13/15 Pantoprazole [Protonix] 40 mg PO BID 10/15/16 Acetaminophen [Tylenol Extra Strength] 1,000 mg PO Q8HR PRN 01/11/19 Albuterol Inhaler [Ventolin Hfa Inhaler] 1 - 2 puff INHALATION RT-Q6H PRN 01/11/19 Albuterol Nebulized [Ventolin Nebulized] 2.5 mg INHALATION Q4-6H PRN 01/11/19 Cyclobenzaprine [Flexeril] 10 mg PO HS PRN 01/11/19 Fexofenadine/Pseudoephedrine [Nubia-D 12 Hour Tablet] 1 each PO BID PRN 01/11/19 Fluticasone Nasal Nelson [Flonase Nasal Nelson] 1 spray EA NOSTRIL BID PRN 01/11/19 Indomethacin [Indocin] 50 mg PO BID 01/11/19 Tiotropium [place] [Spiriva Respimat] 2 puff IH DAILY 01/11/19 Turmeric Root Extract [Turmeric] 500 mg PO DAILY 01/18/19 Metoprolol Succinate (ER) [Toprol XL] 25 mg PO DAILY 03/26/19 Controlled Substance Measures - Controlled Substance Measures Is patient prescribed a controlled substance at discharge?: No
== END | disposition home or self-care (01) ==
LOC: PNWHC3 12:56
PROVIDERS: ATTEND Anesthesiology
DX: M51.16 Intervertebral disc disorders with radiculopathy, lumbar region (principal); M53.3 Sacrococcygeal disorders, not elsewhere classified; Z87.891 Personal history of nicotine dependence; Z79.899 Other long term (current) drug therapy
CPT/HCPCS: 99211

== ENCOUNTER 2019-04-09 06:18 | Day surgery (SDC) | payer BC ==
[2019-04-05 16:07] VITALS: BMI 41.6
[~2019-04-09 06:18] MED LIST changes: +BUPIVACAINE (PF) 0.5% 30 ML VIAL ONE; +IOPAMIDOL M200 10 ML VIAL ONE; -IV FLUID CONTINUATION 475 ML IV ONE; -LIDOCAINE 1% 20 ML VIAL (10MG/ML) FOR IV START INTRADERMA ONE; +MIDAZOLAM 2 MG/2 ML VIAL ONE; +TRIAMCINOLONE ACETONIDE 40 MG/ML 1 ML VIAL ONE; +fentaNYL (PF) 50 MCG/ML 2 ML AMP ONE
[2019-04-09 06:39] VITALS: TEMP 98.2
[2019-04-09] MEDS ORDERED: IV FLUID CONTINUATION 1,000 ML IV ONE ×2 (08:03)
--- NOTE | 2019-04-09 08:08 | FL ---
Fluoroscopy History: RT SI JOINT 3 seconds of fluoroscopic time for RT SI JOINT .
[2019-04-09 08:15] VITALS: RESP 18
--- NOTE | 2019-04-09 08:32 | P.PCN ---
Date of Procedure: 04/09/19 Procedure(s) Performed: Preoperative diagnoses: right sacroilitis Postoperative diagnoses: right sacroilitis. Procedure: right sacroiliac joint steroid injection under fluoroscopic guidance. Surgeon: Bladimir Amanda MD Anesthesia: [2 mL of 1% lidocaine/IV sedation per hospital guidelines], sedation time 7 minutes Fluoroscopy was used for the procedure and fluoroscopic images were saved to the radiology portion of the patient's chart. EBL: None Procedure indication: The patient had a history of severe chronic low back pain, diagnosed with sacroiliitis unresponsive to conservative treatment. Procedure description: The patient was seen and identified in the preoperative holding area, risks and benefits and alternative of the procedure and possible complications discussed with the patient, and patient agreed with the preceding, patient signed the consent, an IV was started, and vital signs were monitored and were stable throughout the procedure, patient was placed in the prone position on table and the lumbosacral area was prepped and draped with a sterile fashion, vital signs were closely monitored during the procedure, the fluoroscopy camera was placed in the contralateral oblique view on the right sacroiliac joint and the lower part of the joint was identified . Then the skin and subcutaneous tissue was anesthetized using 2 mL of 1% lidocaine then a 22- gauge Quincke-type spinal needle advanced slowly under fluoroscopy and placed in the posterior and inferior border of the right sacroiliac joint, placement confirmed with AP and lateral view, and after appropriate needle placement confirmed and after negative aspiration for heme, 1 mL of Isovue 200 was injected revealing intra-articular spread. Then a solution consisting of 2 ml of ropivacaine 0.5% and 40 mg of Kenalog injected after negative aspiration, no paresthesia during the injection, no resistance to injection, and the needle was removed. Patient tolerated the procedure well without any complication. The patient was returned to supine position after the back was cleaned and a Band-Aid applied, the patient was transported to recovery room in stable condition and monitored for 30 minutes before being discharged home. The patient will follow up with the pain clinic in a few weeks
[2019-04-09 08:38] VITALS: BP 129/85; PULSE 66
== END 2019-04-09 08:55 | disposition home or self-care (01) ==
LOC: ORPAIN 06:18
PROVIDERS: ATTEND Anesthesiology
DX: M46.1 Sacroiliitis, not elsewhere classified (principal); M51.16 Intervertebral disc disorders with radiculopathy, lumbar region; Z87.891 Personal history of nicotine dependence; Z79.899 Other long term (current) drug therapy
CPT/HCPCS: 27096; J2250; J3301; J3010; Q9966

== ENCOUNTER 2019-05-07 06:38 | Day surgery (SDC) | payer BC ==
[2019-05-03 12:10] VITALS: BMI 42.5
[~2019-05-07 06:38] MED LIST changes: -fentaNYL (PF) 50 MCG/ML 2 ML AMP ONE
[2019-05-07] MEDS ORDERED: LIDOCAINE 1% (10MG/ML) FOR IV START INTRADERMA ONE (07:14)
[2019-05-07 07:16] VITALS: TEMP 98.2
--- NOTE | 2019-05-07 07:26 | P.PCN ---
Date of Procedure: 05/07/19 Description of Procedure: Procedure: Sacroiliac joint injection right Preoperative diagnosis: Sacroiliitis Postoperative diagnosis: Sacroiliitis Imaging: Fluoroscopy was used, images where saved to the medical record Complications: none Anesthesia: 1% lidocaine 5cc and IV conscious sedation per nurse anesthesia Description of the procedure: procedure risk and benefits discussed with the patient, including but not limited, risk of infection and bleeding, and allergic reaction to the medication and incomplete pain relief. Patient agreed and sign ed consent. Patient was taken to the room and placed in a prone position. Chlorhexidine was used to cleanse the skin. Under sterile conditions patient skin was anesthetized 1% lidocaine. Subcutan eous tissues were also anesthetized with a total 5 mL of 1% lidocaine. After that, a 22-gauge spinal needle was advanced through the anesthetized location under fluoroscopic guidance. Needle was advanced into the inferior portion of the sacroiliac joint. IV contrast was used to confirm spread within the joint. After adequate spread was achieved, 2.5 ML's of 0.5% ropivacaine with 40 mg of triamcinolone was injected into the joint. Patient tolerated the procedure well. Sent to the recovery room in stable condition. Patient will follow up as directed.
[2019-05-07] MEDS ORDERED: IV FLUID CONTINUATION 700 ML IV ONE (07:52)
[2019-05-07 07:57] VITALS: BP 157/72; PULSE 74
--- NOTE | 2019-05-07 08:02 | FL ---
EXAMINATION TYPE: FL guided pain mgmt statistic DATE OF EXAM: 05/07/2019 FLUOROSCOPY Fluoroscopy time of 1 seconds was used during right lumbar injection. 1 image/s document/s the rocio richard.
== END 2019-05-07 08:11 | disposition home or self-care (01) ==
LOC: ORPAIN 06:38
PROVIDERS: ATTEND Hospitalist
DX: M46.1 Sacroiliitis, not elsewhere classified (principal); Z78.0 Asymptomatic menopausal state; Z88.1 Allergy status to other antibiotic agents
CPT/HCPCS: 27096; J2250; J3301; Q9966; 99211

== ENCOUNTER → 2019-06-04 | Outpatient (CLI) | payer BC | END | disposition home or self-care (01) | CPT/HCPCS: 99211 ==

== ENCOUNTER → 2019-08-29 | Outpatient (CLI) | payer BC ==
[2019-08-29 08:38] VITALS: BP 128/61; PULSE 91; RESP 16
--- NOTE | 2019-08-29 12:00 | P.PN ---
Progress Note - Text Progress Note Date: 08/29/19 Subjective This is a 52-year-old lady with history of chronic lower back pain mostly on the right side of her spine with radiation to the right leg down to the right knee and numbness and tingling in the right foot occasionally. The patient failed to respond to epidural steroid injection but she responded well to the right sacroiliac joint steroid injection with significant improvement in her pain. Her initial's SI joint injection caused her to have numbness down her right leg and was not beneficial, however the second She noted 100% relief for greater then 2 months. The patient's health insurance does not approve sacr oiliac joint RFA so we cannot proceed with this at this point. I did discuss other options including PRP as well as consultation to a spine surgeon for fusion. Patient wishes to proceed conservatively. We'll have to perform another diagnostic injection to rule out any secondary benefit from steroid injection. Patient denies new-onset weakness, bowel/bladder incontinence, or any other signs or symptoms of cauda equina syndrome. There are no signs of acute intoxication, and no indications of medication diversion or overuse. In addition to above, 13-point review of systems is also negative for chest pain, shortness of breath, changes in vision, changes in hearing, new onset weakness, abdominal pain, diarrhea, extreme fatigue, malaise, fever, skin changes, homicidal or suicidal ideation, or bowel or bladder incontinence. Vital Signs: Reviewed in EMR Gen: AAOx3, NAD HEENT: PERRLA,hearing grossly normal Pulm: resp unlabored Heart: Regular no edema Neck: supple, trachea midline Neuro exam of the lower extremities: Normal knee reflexes, absent ankle reflexes, normal muscle strength bilaterally Positive tenderness around the right sacroiliac joint, positive Felicia, positive Da. Neuro: CN II-XII grossly intact, Imaging: Reviewed in EMR/chart Assessment: Right sacroiliitis Lumbar radiculopathy Morbid obesity Plan: 1. Explanation: Opioid and psychological risk scores were reviewed. Diagnoses, prognoses, and multiple treatment options including but not limited to physical therapy, interventional therapies, adjuvant medical therapies, narcotic medication therapies, and surgery were discussed with the patient and all questions were answered to the patient's satisfaction. 2. Opioid agreement: None prescribed 3. Counseling: The patient was counseled extensively on BODY MASS INDEX, EXERCISE. Specifically, the patient was instructed regarding the importance of smoking cessation, obesity, and exercise in the context of both chronic pain and overall health. 4. Procedures: We'll schedule diagnostic right sacroiliac joint injection without steroid. 5. Consultations: None 6. Investigations: Maps were reviewed and were appropriate. 7. Medications: Continue Zanaflex 4 mg 3 times a day and Neurontin 300 mg 3 times a day 8. Disposition: We'll have patient return to clinic in 2 weeks to perform a diagnostic right sacroiliac joint injection. I discussed further therapeutic options for SI joint dysfunction if this diagnostic test proves beneficial. We discussed her pain injections as well as sacroiliac joint fusion. Given her insurance provider, sacroiliac radio frequency ablation would not be covered.
== END | disposition home or self-care (01) ==
LOC: PNWHC3 08:19
PROVIDERS: ATTEND Anesthesiology
DX: M54.16 Radiculopathy, lumbar region (principal); E66.01 Morbid (severe) obesity due to excess calories; M46.1 Sacroiliitis, not elsewhere classified; Z68.41 Body mass index [BMI] 40.0-44.9, adult
CPT/HCPCS: 99211

== ENCOUNTER 2019-09-11 06:19 | Day surgery (SDC) | payer BC ==
[2019-09-11 06:42] VITALS: TEMP 97.5
[2019-09-11] MEDS ORDERED: LACTATED RINGERS 1,000 ML IV SCH (06:45)
[2019-09-11] MEDS ORDERED: ROPIVACAINE 5MG/ML 20ML VIAL ONE (06:59)
[2019-09-11] MEDS ORDERED: MIDAZOLAM 2 MG/2 ML VIAL ONE (06:59)
--- NOTE | 2019-09-11 07:16 | P.PCN ---
Date of Procedure: 09/11/19 Procedure(s) Performed: Procedure= Right sacroiliac joints injection under fluoroscopy guidance (fluoroscopy image stored on file in the radiology Department ) Preoperative diagnosis= 1-Right sacroiliitis 2-lumbar radiculopathy. 3-right sacroiliac joint dysfunction Postoperative diagnosis=Same as preop Diagnosis . Complication = none Condition= stable Anesthesia= moderate sedation with intravenous Versed 2 mg . Indication for the procedure= patient complaining of low back pain , examination was positive for severe tenderness over the right sacroiliac joints , and patient diagnosed with right sacroiliitis, for this reason , she was good candidate for sacroiliac joint injection. Description of the procedure= procedure risk and benefits discussed with the patient, including but not limited, risk of infection and bleeding, and ALLERGIC reaction to the medication and not complete pain relief and patient agreed with the preceding patient taken to the operating room, placed in prone position or standard monitors applied to the patient then after induction of anesthesia back prepped with chlorhexidine 3 times , Then under strict sterile technique, first I did the right sacroiliac joint the which was identified under fluoroscopy guidance been local infiltration of the skin and subcu interstitial with lidocaine 1% then 22-gauge 5 inches long Quincke Needle advanced slowly under fluoroscopy and placed in the right sacroiliac joint needle placement confirmed with AP and oblique and lateral view and after appropriate needle placement confirmed and after negative aspiration, or heme , then Ropivacaine 0.5% 5 mL injected in the right sacroiliac joint after negative aspiration patient tolerated the procedure well without any complication.(Steroid was not injected because it was diagnostic test, to confirm the diagnosis, that the patient had sacroiliac joint etiology )
[2019-09-11] MEDS ORDERED: IV FLUID CONTINUATION 1,000 ML IV ONE (07:17)
[2019-09-11 07:19] VITALS: RESP 18
[2019-09-11 07:37] VITALS: BP 112/76; PULSE 74
--- NOTE | 2019-09-11 08:16 | FL ---
EXAMINATION TYPE: FL guided pain mgmt statistic DATE OF EXAM: 09/11/2019 CLINICAL HISTORY: Right sacroiliac joint pain. TECHNIQUE: Fluoroscopy. COMPARISON: None. FINDINGS: Fluoroscopic guidance was provided during pain relief procedure performed by Dr. Harmon . A total of 2 seconds of fluoroscopic time was utilized during the procedure and single spot fluoro scopic intraoperative images acquired. Single image acquired shows needle visualization of right sacr oiliac joint. IMPRESSION: As Above.
== END 2019-09-11 07:49 | disposition home or self-care (01) ==
LOC: ORPAIN 06:19
PROVIDERS: ATTEND Specialist
DX: M46.1 Sacroiliitis, not elsewhere classified (principal); M53.3 Sacrococcygeal disorders, not elsewhere classified; M54.16 Radiculopathy, lumbar region; Z78.0 Asymptomatic menopausal state; Z91.040 Latex allergy status; Z88.1 Allergy status to other antibiotic agents
CPT/HCPCS: 27096; J2250; J2795

== ENCOUNTER → 2020-04-03 | Outpatient (CLI) | payer BC ==
--- NOTE | 2020-04-03 12:18 | XR ---
EXAMINATION TYPE: XR cervical spine comp DATE OF EXAM: 04/03/2020 TECHNIQUE: Frontal, lateral, oblique, swimmers, and open mouth view of the cervical spine are obtaine d. HISTORY: [id number] Cervicalgia, rt SHLD PAIN COMPARISON: None FINDINGS: The cervical spine is visualized in its entirety from C1 thru the top of T1 level, it is s traightened in alignment without evidence of acute fracture or dislocation. The pre-vertebral soft t issue appears within normal limits. The C1-C2 articulation is within normal limits on the open mouth view. Vertebral body heights and disc space heights are maintained. The oblique images are within no rmal limits. Overlying soft tissue shows mild calcified plaque left carotid bulb level. IMPRESSION: As above.
--- NOTE | 2020-04-03 12:21 | XR ---
EXAMINATION TYPE: XR shoulder complete RT DATE OF EXAM: 04/03/2020 CLINICAL HISTORY: Pain for 3 weeks. TECHNIQUE: Three views of the right shoulder are obtained. COMPARISON: None. FINDINGS: There is no acute fracture/dislocation evident in the right shoulder. Mild to moderate vipul rowing of acromioclavicular joint with mild spurring inferiorly. Distal acromion morphology unremarka ble. Glenohumeral joint preserved. The visualized ribs are intact and unremarkable. IMPRESSION: As above.
== END | disposition home or self-care (01) ==
LOC: RADXRYALE 11:45
PROVIDERS: ATTEND Family Medicine
DX: M75.81 Other shoulder lesions, right shoulder (principal); M54.2 Cervicalgia
CPT/HCPCS: 72050

== ENCOUNTER → 2021-03-19 | Outpatient (CLI) | payer BC ==
--- NOTE | 2021-03-19 19:36 | XR ---
EXAMINATION TYPE: XR chest 2V DATE OF EXAM: 03/19/2021 COMPARISON: None HISTORY: 56-year-old female J4520, [id number] ASTHMA, SOB TECHNIQUE: Frontal and lateral views FINDINGS: Heart normal size. Aorta and pulmonary vasculature within normal limits. No consolidation or pleural effusion. Moderate endplate spondylosis mid to lower thoracic spine. IMPRESSION: No acute cardiopulmonary process.
== END | disposition home or self-care (01) ==
LOC: RADXRYALE 15:33
PROVIDERS: ATTEND Physician Assistant
DX: J45.20 Mild intermittent asthma, uncomplicated (principal)
CPT/HCPCS: 71046

== ENCOUNTER → 2021-07-16 | Outpatient (CLI) | payer BC | END | disposition home or self-care (01) | LOC: LABPAT 14:06 | PROVIDERS: ATTEND Otolaryngology | DX: I10 Essential (primary) hypertension (principal) | CPT/HCPCS: 93005 ==

== ENCOUNTER → 2021-11-27 | Outpatient (CLI) | payer BC ==
--- NOTE | 2021-11-27 22:46 | MR ---
EXAMINATION TYPE: MR shoulder RT wo con DATE OF EXAM: 11/27/2021 COMPARISON: None. HISTORY: Right shoulder/clavicle pain, limited ROM. Xrays on pacs. TECHNIQUE: Multiplanar, multisequence imaging of the right shoulder is performed without contrast. FINDINGS: Rotator Cuff: Some increased signal in the distal supraspinatus and to a greater degree in the distal infraspinatus tendons. Subscapularis tendon intact. Rotator cuff muscle bulk preserved. Acromioclavicular Joint: Moderate narrowing with mild to moderate spurring. Loss of the underlying fa t plane suspicious for impingement. Correlate clinically. Glenohumeral Joint: Moderate narrowing. No significant effusion or spurring. Labrum: The labrum appears grossly intact given limitation of non-arthrogram study. Biceps Tendon: The long head of biceps is in normal location within bicipital groove. Bone marrow signal: No focal abnormal marrow signal is appreciated. Other: Increased fluid signal subdeltoid/subacromial bursa. IMPRESSION: 1. Moderate AC joint arthropathy with suggestion of underlying impingement. Correlate clinically. 2. Tendinosis of the supraspinatus and to greater degree infraspinatus tendons. 3. Mild subdeltoid/subacromial bursitis.
== END | disposition home or self-care (01) ==
LOC: RADMRIMAIN 18:37
PROVIDERS: ATTEND Family Medicine
DX: M19.011 Primary osteoarthritis, right shoulder (principal); M67.813 Other specified disorders of tendon, right shoulder; M75.51 Bursitis of right shoulder

== ENCOUNTER → 2022-01-28 | Outpatient (CLI) | payer BC ==
[2022-01-28 22:57] LABS: Immunoglobulin M 79.6 mg/dL (40.0-280.0)
[2022-01-29 11:08] LABS: Epicoccum purpurascens Class CLASS 0; Epicoccum purpurascens IgE <0.10 kU/L (<0.10); Rhizopus nigricans IgE <0.10 kU/L (<0.10); Rhizopus nigricans IgE Class CLASS 0; Sycamore(Mpl.Lf) IgE <0.10 kU/L (<0.10); Sycamore(Mpl.Lf) IgE Class CLASS 0; White Ash IgE Class CLASS 0
[2022-01-29 14:23] LABS: Alternaria alternata IgE <0.10 kU/L; Aspergillus fumagatus IgE <0.10 kU/L; Birch IgE <0.10 kU/L; Cat Epith & Dander IgE <0.10 kU/L; Cladosporian herbarum IgE <0.10 kU/L; Cockroach IgE <0.10 kU/L; Dermato. farinae IgE <0.10 kU/L; Dog Dander IgE <0.10 kU/L; Elm IgE <0.10 kU/L; Maple (Box Elder) IgE <0.10 kU/L; Oak IgE <0.10 kU/L; Ragweed,Common IgE <0.10 kU/L; Red Top (Bentgrass) IgE <0.10 kU/L
== END | disposition home or self-care (01) ==
LOC: LABWHC1 15:34
PROVIDERS: ATTEND Otolaryngology
DX: J30.89 Other allergic rhinitis (principal)
CPT/HCPCS: 36415; 82784; 82785; 82787; 86001; 86003

== ENCOUNTER → 2022-06-24 | Outpatient (CLI) | payer BC ==
--- NOTE | 2022-06-24 10:42 | MM ---
Reason for Exam: Clinical finding. Last mammogram was performed 6 year(s) and 2 month(s) ago. Patient History: Menarche at age 17. First Full-Term at age 26. Perimenopausal. Maternal aunt had breast cancer, age 63. Risk Values: Debby 5 year model risk: 1.0%. NCI Lifetime model risk: 6.7%. Tissue Density: There are scattered fibroglandular densities. Findings: Analyzed By CAD. No significant change from prior exams. The prominent lymph nodes seen on the patient's ultrasound from 2 months ago not apparent on the mammograms. Overall Assessment: Incomplete: need additional imaging evaluation, BI-RAD 0 Management: Diagnostic Breast Ultrasound of the right breast. To reassess the enlarging palpable area. Electronically signed and approved by: Delphine Mora M.D. Radiologist
--- NOTE | 2022-06-24 11:29 | USB ---
Reason for Exam: Clinical finding. Patient History: Menarche at age 17. First Full-Term at age 26. Perimenopausal. Maternal aunt had breast cancer, age 63. Risk Values: Debby 5 year model risk: 1.0%. NCI Lifetime model risk: 6.7%. Technique: Method: Targeted. Prior Study Comparison: 04/23/2016 Bilateral Screening Mammogram, [facility]. Findings: The upper outer quadrant of the right breast, the axilla of the right breast and the retroareolar of the right breast were scanned. Targeted ultrasound right breast upper outer quadrant including the subareolar region and axilla. Redemonstrated are 2 lymph nodes in the left axilla, larger measuring 2.7 x 1.7 x 1.5 cm (in comparison to 2.6 x 2.3 x 1.5 cm, previously). The smaller measuring 1.2 x 0.8 x 0.8 cm (in comparison to 1.6 x 1.1 x 0.6 cm, previously). These show no cortical thickening. Fatty hilum is maintained. No other solid or cystic lesion. We note that the patient's palpable region is in the axilla but separate from the lymph nodes. Overall Assessment: Probably benign, BI-RAD 3 Management: Diagnostic Breast Ultrasound of the right breast in 6 months. To reassess the borderline to mildly enlarged right axillary lymph node, suspected reactive/post inflammatory given 2 months of relative stability. Further clinical management of any suspicious palpable abnormalities. If patient's right shoulder pain persists, consider orthopedic evaluation to discuss findings on the 11/27/2021 shoulder MRI. Results were given to the patient verbally at the time of exam. Electronically signed and approved by: Delphine Mora M.D. Radiologist
== END | disposition home or self-care (01) ==
LOC: RADMAMWWP 10:02
PROVIDERS: ATTEND Surgery
DX: N63.10 Unspecified lump in the right breast, unspecified quadrant (principal); Z80.3 Family history of malignant neoplasm of breast
CPT/HCPCS: 77062; 77066

== ENCOUNTER → 2022-09-22 | Outpatient (CLI) | payer BC ==
[2022-09-22 15:46] LABS: Appearance,Urine Clear (Clear); Bilirubin,Urine Negative (Negative); Blood,Urine Trace (Negative); Color,Urine Yellow (Yellow); Ketones,Urine Negative (Negative); Nitrite,Urine Negative (Negative)
[2022-09-22 15:52] LABS: Bacteria,Urine None Seen (None Seen)
[2022-09-22 21:35] LABS: Basophils # (A) 0.06 X 10*3/uL (0.00-0.10); Basophils % (A) 0.8 %; Eosinophils # (A) 0.14 X 10*3/uL (0.04-0.35); Eosinophils % (A) 1.8 %; HCT 42.7 % (37.2-46.3); HGB 13.1 d/dL (12.0-15.0); Lymphocytes % (A) 35.7 %; MCH 28.7 pg (27.0-32.0); MCHC 30.7 d/dL (32.0-37.0); MCV 93.4 FL (80.0-97.0); Mean Platelet Volume 11.8 FL (9.5-12.2); Monocytes # (A) 0.71 X 10*3/uL (0.20-1.00); NRBC Per 100 WBC 0 X 10*3/uL (0.00-0.01); Neutrophils # (A) 4.09 X 10*3/uL (1.80-7.70); Neutrophils % (A) 52.1 %; Platelet Count 276 X 10*3/uL (140-440); RBC 4.57 X 10*6/uL (4.10-5.20); WBC 7.85 X 10*3/uL (4.50-10.00)
[2022-09-22 21:42] LABS: BUN/Creat Ratio 28.14 Ratio (12.00-20.00); Blood Urea Nitrogen 19.7 mg/dL (9.0-27.0); Calcium 9.2 mg/dL (8.7-10.3); Carbon Dioxide 26.5 mmol/L (21.6-31.8); Chloride 102 mmol/L (96-109); Glucose 92 mg/dL (70-110); Potassium 3.8 mmol/L (3.5-5.5); Sodium 141 mmol/L (135-145)
== END | disposition home or self-care (01) ==
LOC: LABPAT 11:14
PROVIDERS: ATTEND Urology
DX: Z01.812 Encounter for preprocedural laboratory examination (principal); N20.1 Calculus of ureter; R31.29 Other microscopic hematuria
CPT/HCPCS: 80048; 81001; 85025; 87086

== ENCOUNTER 2022-09-28 07:33 | Day surgery (SDC) | payer BC ==
[2022-09-24 09:03] VITALS: BMI 34.2
[~2022-09-28 07:33] MED LIST changes: -BUPIVACAINE (PF) 0.5% 30 ML VIAL ONE; +CIPROFLOXACIN/DEXTROSE PMX 400 MG in DEXTROSE/WATER 1 200ML.BAG IVPB PRN; +GENTAMICIN 120 MG in SODIUM CHLORIDE 0.9% 100 ML IVPB PRN; +HYDROmorphone 0.5 MG/0.5 ML SYRINGE IVP PRN; -IOPAMIDOL M200 10 ML VIAL ONE; -LACTATED RINGERS 1,000 ML IV SCH; +LIDOCAINE 1% (10MG/ML) FOR IV START INTRADERMA PRN; -MIDAZOLAM 2 MG/2 ML VIAL ONE; +ONDANSETRON 4 MG/2 ML VIAL IVP ONE; -TRIAMCINOLONE ACETONIDE 40 MG/ML 1 ML VIAL ONE
[2022-09-28] MEDS: LACTATED RINGERS 1,000 ML IV SCH ×2 (08:24→10:55)
--- NOTE | 2022-09-28 08:24 | XR ---
EXAMINATION TYPE: XR KUB DATE OF EXAM: 09/28/2022 7:45 AM INDICATION: Patient age:Female; 57 years old; Reason for study: KIDNEY STONES; [facility]. COMPARISON: 09/28/2022 TECHNIQUE: One radiographic view of the abdomen was obtained. FINDINGS: Left ureteral stent with tips in appropriate position. Multilevel disc degeneration changes of the spine. Multiple pelvic fluid was present. The bowel gas pattern is nonspecific without dilate d loops of small or large bowel. There is no evidence for organomegaly or pneumoperitoneum. The osse ous structures are intact. Fecal material and gas are demonstrated throughout the colon and rectum. IMPRESSION: 1. Left ureteral stent which appears in appropriate position. 2. Nonspecific bowel gas pattern without radiographic evidence for acute process.
[2022-09-28] MEDS ORDERED: LACTATED RINGERS 1,000 ML IV ONE ×2 (08:26→09:26)
[2022-09-28] MEDS ORDERED: DEXAMETHASONE SOD PHOSPHATE 4 MG/ML 1 ML VIAL IVP ONE (08:26)
[2022-09-28] MEDS ORDERED: SCOPOLAMINE 1 MG/72 HR PATCH TRANSDERM ONE (08:27)
[2022-09-28] MEDS ORDERED: MIDAZOLAM 2 MG/2 ML VIAL IVP ONE (08:42)
--- NOTE | 2022-09-28 09:07 | P.HPIHPCON ---
History of Present Illness H&P Date: 09/28/22 Chief Complaint: Left ureteral stone This is a 57-year-old female with history of 2 distal ureteral stones status post stent insertion in August for septic stone. Presents today for left-sided ureteroscopy with holmium laser and stent removal. Discussed procedure with her in detail. The risk of bleeding infection and injury to the ureter were discussed . She understood all the risk and agreed to proceed with left-sided ureteroscopy, holmium laser lithotripsy, stone basketing and stent removal Consent for Procedure: I have explained the operation/procedure to the patient, including the risks, benefits, side effects, alternative therapies (including not receiving the proposed treatment or service), the likelihood of the patient achieving his/her goals, and potential recuperation problems for the procedure/sedation/analgesia, as well as any blood products, if indicated. I also explained to the patient the risks, benefits and side effects of the alternatives, as well as the risks related to not receiving the proposed procedure, care, treatment, or services. Past Medical History Past Medical History: Asthma, GERD/Reflux, Hypertension, Osteoarthritis (OA) Additional Past Medical History / Comment(s): SI joint pain, KIDNEY STONES History of Any Multi-Drug Resistant Organisms: None Reported Past Surgical History: Section, Orthopedic Surgery, Tubal Ligation Additional Past Surgical History / Comment(s): Right knee arthroscopy x 2 - removed bone chip and repaired meniscus; cleaned up scar tissue and tearing; 2016, Right ankle surgery - 1979. Hysteroscopy with ablation, PAIN INJECTIONS. COLONOSCOPY,. LT KIDNEY STENT AT [facility] Past Anesthesia/Blood Transfusion Reactions: Family History of Problems w/ Anesthesia, Motion Sickness Additional Past Anesthesia/Blood Transfusion Reaction / Comment(s): sister had a reaction to anesthesia unsure of what happened Smoking Status: Former smoker - Past Family History Father Additional Family Medical History / Comment(s): pacemaker Medications and Allergies Home Medications Medication Instructions Recorded Confirmed Type Montelukast Sodium [Singulair] 10 mg PO HS 11/13/15 09/28/22 History Pantoprazole [Protonix] 40 mg PO BID 10/15/16 09/28/22 History Acetaminophen [Tylenol Extra 1,000 mg PO Q8HR PRN 01/11/19 09/28/22 History Strength] Albuterol Inhaler [Ventolin Hfa 1 - 2 puff INHALATION RT-Q6H PRN 10/24/19 07/11/23 History Inhaler] Albuterol Nebulized [Ventolin 2.5 mg INHALATION Q4-6H PRN 01/11/19 09/28/22 His tory Nebulized] Fexofenadine/Pseudoephedrine 1 each PO BID PRN 01/11/19 09/28/22 History [Nubia-D 12 Hour Tablet] Fluticasone Nasal [place] [Flonase 1 spray EA NOSTRIL BID PRN 01/11/19 09/28/22 History Nasal [place]] Indomethacin [Indocin] 50 mg PO BID 01/11/19 09/28/22 History Tiotropium [place] [Spiriva 2 puff IH DAILY 01/11/19 09/28/22 History Respimat] Metoprolol Succinate (ER) [Toprol 25 mg PO DAILY 03/26/19 09/28/22 History XL] Famotidine 20 mg PO HS 05/03/19 09/28/22 History Gabapentin [Neurontin] 300 mg PO TID 05/03/19 09/28/22 History Losartan Potassium 100 mg PO DAILY 05/03/19 09/28/22 History hydroCHLOROthiazide 25 mg PO DAILY 05/03/19 09/28/22 History tiZANidine HCL [Zanaflex] 4 mg PO TID 05/03/19 09/28/22 History Acetaminophen/Diphenhydramine 2 tab PO HS PRN 06/01/19 09/28/22 History [Tylenol Pm Ex-Strength Caplet] Inulin/Chromium Picolinate [Fiber 1 tab PO DAILY 09/24/22 09/28/22 History Gummies Chew] L.acidoph,Paracasei, B.lactis 1 each PO DAILY 09/24/22 09/28/22 History [Probiotic] Multivit-Min/Folic Acid/Biotin 133.3 mcg PO DAILY 09/24/22 09/28/22 History [Hair, Skin and Nails Softgel] Zinc Gluconate [Zinc] 50 mg PO DAILY 09/24/22 09/28/22 History traMADol HCL 50 mg PO RT-BID PRN 09/28/22 09/28/22 History Allergies Allergy/AdvReac Type Severity Reaction Status Date / Time cephalexin monohydrate Allergy Rash/Hives,yeast Verified 09/24/22 08:50 [From Keflex] infection latex Allergy Itching, Verified 09/24/22 08:50 hives supaan,almonds Allergy Severe Anaphylaxis Uncoded 09/24/22 08:50 Surgical - Exam - General no distress, no pain - Eyes normal ocular movement, no pale - ENT normal nares, normal mucosa - Respiratory normal expansion, normal respiratory effort Assessment and Plan Assessment: OR for left-sided ureteroscopy, holmium laser lithotripsy, stone basketing and stent removal
[2022-09-28] MEDS ORDERED: PROPOFOL 10 MG/ML 20 ML VIAL IV ONE (09:24)
[2022-09-28] MEDS ORDERED: fentaNYL (PF) 50 MCG/ML 2 ML AMP ONE (09:24)
[2022-09-28] MEDS ORDERED: SUCCINYLCHOLINE CHLORIDE 200 MG/10 ML VIAL IV ONE (09:24)
[2022-09-28] MEDS ORDERED: LIDOCAINE 2% INJ 20 MG/ML (2 ML VIAL) ONE (09:24)
[2022-09-28] MEDS ORDERED: SODIUM CHLORIDE 0.9% 1,000 ML with ceFAZolin 2,000 MG IV ONE ×2 (09:26)
--- NOTE | 2022-09-28 10:24 | P.OP ---
Date of Procedure: 09/28/22 Preoperative Diagnosis: Left ureteral stone Postoperative Diagnosis: Same Procedure(s) Performed: Cystoscopy, left ureteroscopy, holmium laser lithotripsy stone basketing and stent removal Implants: None Anesthesia: JFA Surgeon: Keith Bates Estimated Blood Loss (ml): 1 Pathology: other (left ureteral stone) Condition: stable Disposition: PACU Indications for Procedure: This is a 57-year-old female with history of 2 distal ureteral stones status po st stent insertion in August for septic stone. Presents today for left-sided ureteroscopy with holmium laser and stent removal. Discussed procedure with her in detail. The risk of bleeding infection and injury to the ureter were discussed . She understood all the risk and agreed to proceed with left-sided ureteroscopy, holmium laser lithotripsy, stone basketing and stent remova Operative Findings: Distal ureteral stone Description of Procedure: Patient brought to the operating room, general anesthesia was induced. She was prepped and draped in sterile fashion and placed in dorsal lithotomy position. Cystoscopy fitted with 21-Mongolian sheath was inserted per urethra, cystoscopy was performed which showed no abnormality within the bladder. The stent was grasped and removed to the meatus. Next a sensor wire was advanced through the stent and the stent was removed with the wire in place. A semirigid ureteroscope was inserted per urethra and advanced up the left ureteral orifice, a stone was encountered in the distal ureter. Using the holmium laser the stone was fragmented. Stone fragments were removed using the stone basket. At this time the ureteroscope was advanced all the way up to the UPJ which showed no additional stones or sizable fragments, pullback ureteroscopy was performed which showed no injury to the ureter or any sizable fragments. The stone fragments were sent for analysis. The bladder was emptied at the end of the case. Patient tolerated procedure well was taken to recovery in stable condition
[2022-09-28 10:28] VITALS: TEMP 97.1
[2022-09-28] MEDS ORDERED: KETOROLAC 15 MG/ML 1 ML VIAL IVP ONE (10:37)
[2022-09-28 10:48] VITALS: RESP 16
--- NOTE | 2022-09-28 10:53 | FL ---
Intraoperative/procedural fluoroscopic services were provided. Total fluoroscopy time is 1 seconds wi th a total of 1 submitted images to PACS. Please see the operative/procedural note for further detail s. DAP: [id number] [id number]
[2022-09-28 11:01] VITALS: BP 125/80; PULSE 79
== END 2022-09-28 11:47 ==
LOC: OR 07:33
PROVIDERS: ATTEND Urology
DX: N20.1 Calculus of ureter (principal); K21.9 Gastro-esophageal reflux disease without esophagitis; J45.909 Unspecified asthma, uncomplicated; I10 Essential (primary) hypertension; M19.90 Unspecified osteoarthritis, unspecified site; Z98.891 History of uterine scar from previous surgery; Z98.51 Tubal ligation status; Z79.899 Other long term (current) drug therapy
CPT/HCPCS: 82365; 74018; 52353; C1758 ×4; C1894; C1769; J2250; J0330; J1100; J2405; J0690; J3010; J1885; J2704; J1170; J2001

== ENCOUNTER → 2023-01-21 | Outpatient (CLI) | payer BC ==
--- NOTE | 2023-01-21 09:31 | USB ---
Reason for Exam: Follow-up at short interval from prior study. Patient History: Menarche at age 17. First Full-Term at age 26. Perimenopausal. Maternal aunt had breast cancer, age 63. Risk Values: Debby 5 year model risk: 1.0%. NCI Lifetime model risk: 6.7%. Technique: Method: Targeted. Prior Study Comparison: 04/23/2016 Bilateral Screening Mammogram, [facility]. 06/24/2022 Bilateral MG 3D diag mammo w/cad LISA, [facility]. Findings: The upper outer quadrant of the right breast and the axilla of the right breast were scanned. Prominent lymphadenopathy within the right axilla is again evident. The largest lymph node measures 1.5 x 2.7 x 1.3 cm. No thickening of the cortex is evident. A smaller node measuring 1.9 x 0.9 x 0.9 cm is slightly larger than comparison although no cortical thickening is evident.. Overall Assessment: Benign, BI-RAD 2 Management: Screening Mammogram of both breasts in 5 months. A clinical breast exam by your physician is recommended on an annual basis and results should be correlated with mammographic findings. This exam should not preclude additional follow-up of suspicious palpable abnormalities. Results were given to the patient verbally at the time of exam. Electronically signed and approved by: Lyle Saavedra D.O. Radiologis
== END | disposition home or self-care (01) ==
LOC: RADUSWWP 08:56
PROVIDERS: ATTEND Family Medicine
DX: R92.8 Other abnormal and inconclusive findings on diagnostic imaging of breast (principal); Z80.3 Family history of malignant neoplasm of breast

== ENCOUNTER → 2023-04-13 | Outpatient (CLI) | payer BC ==
--- NOTE | 2023-04-13 12:11 | US ---
EXAMINATION TYPE: US kidneys/renal and bladder DATE OF EXAM: 04/13/2023 COMPARISON: US abdomen 2018 CLINICAL INDICATION: Female, 58 years old with history of R31.9 HEMATURIA, UNSPECIFIED; HX of renal s tones. Microscopic hematuria. Patient states doctor gave medication to break up stones. No other curr ent pain or symptoms EXAM MEASUREMENTS: Right Kidney: 12.0 x 5.0 x 6.3 cm Left Kidney: 12.3 x 5.0 x 4.9 cm Right Kidney: No hydronephrosis or masses seen Left Kidney: No hydronephrosis or masses seen. Hypertrophic column of deja variant seen. Bladder: wnl Bilateral Jets seen: Yes There is no evidence for hydronephrosis at this point in time. No nephrolithiasis is seen. No cedric s are identified. The urinary bladder is anechoic. Bilateral ureteral jets are seen. IMPRESSION: 1. No evidence for obstructive uropathy. 2. Cortical medullary differentiation maintained. 3. No renal calculi visualized.
== END | disposition home or self-care (01) ==
LOC: RADUSWWP 10:03
PROVIDERS: ATTEND Family Medicine
DX: R31.29 Other microscopic hematuria (principal); M54.59 Other low back pain; Z87.442 Personal history of urinary calculi
CPT/HCPCS: 76770

== ENCOUNTER → 2023-06-23 | Outpatient (CLI) | payer BC ==
--- NOTE | 2023-06-23 13:09 | MM ---
Reason for Exam: Screening (asymptomatic). Last screening mammogram was performed 12 month(s) ago. Patient History: Menarche at age 17. First Full-Term at age 26. Postmenopausal. Maternal aunt had breast cancer, age 63. Risk Values: Debby 5 year model risk: 1.0%. NCI Lifetime model risk: 6.6%. Prior Study Comparison: 04/23/2016 Bilateral Screening Mammogram, [facility]. 06/24/2022 Bilateral MG 3D diag mammo w/cad LISA, [facility]. Tissue Density: There are scattered areas of fibroglandular density. Findings: Analyzed By CAD. There is no suspicious group of microcalcifications or new suspicious mass in either breast. Overall Assessment: Negative, BI-RAD 1 Management: Screening Mammogram of both breasts in 1 year. . Patient should continue monthly self-breast exams. A clinical breast exam by your physician is recommended on an annual basis. This exam should not preclude additional follow-up of suspicious palpable abnormalities. Note on Debby scores and lifetime risk: 1. A Debby score greater than 3% is considered moderate risk. If this is the case, consider specialist referral to assess eligibility for a risk reducing agent. 2. If overall lifetime risk for the development of breast cancer is 20% or higher, the patient may qualify for future screening with alternating mammogram and breast MRI. Electronically signed and approved by: Laith Bardales M.D. Radiologis
== END | disposition home or self-care (01) ==
LOC: RADMAMWWP 09:43
PROVIDERS: ATTEND Family Medicine
DX: Z12.31 Encounter for screening mammogram for malignant neoplasm of breast (principal); Z80.3 Family history of malignant neoplasm of breast; Z78.0 Asymptomatic menopausal state
CPT/HCPCS: 77063; 77067

== ENCOUNTER → 2024-01-12 | Outpatient (CLI) | payer BC ==
[2024-01-12 16:32] LABS: Basophils # (A) 0.03 X 10*3/uL (0.00-0.10); Basophils % (A) 0.4 %; Eosinophils # (A) 0.12 X 10*3/uL (0.04-0.35); Eosinophils % (A) 1.5 %; HGB 14.3 g/dL (12.0-15.0); Lymphocytes # (A) 2.74 X 10*3/uL (0.90-5.00); Lymphocytes % (A) 33.2 %; MCH 30.1 pg (27.0-32.0); MCHC 32.5 g/dL (32.0-37.0); MCV 92.6 FL (80.0-97.0); Mean Platelet Volume 11.9 FL (9.5-12.2); Monocytes # (A) 0.63 X 10*3/uL (0.20-1.00); Monocytes % (A) 7.6 %; NRBC Per 100 WBC 0 X 10*3/uL (0.00-0.01); Neutrophils # (A) 4.71 X 10*3/uL (1.80-7.70); Neutrophils % (A) 57.1 %; Platelet Count 314 X 10*3/uL (140-440); RBC 4.75 X 10*6/uL (4.10-5.20); RDW 12.9 % (11.5-14.5); WBC 8.25 X 10*3/uL (4.50-10.00)
[2024-01-12 16:44] LABS: ALT 24 U/L (8-44); AST 24 U/L (13-35); Albumin 4.3 g/dL (3.8-4.9); Albumin/Globulin Ratio 1.54 Ratio (1.60-3.17); Alkaline Phosphatase 86 U/L (41-126); Blood Urea Nitrogen 18.9 mg/dL (9.0-27.0); Calcium 9.7 mg/dL (8.7-10.3); Carbon Dioxide 29.3 mmol/L (21.6-31.8); Chloride 101 mmol/L (96-109); Chol/HDL Ratio 4.29 Ratio; Globulin 2.8 g/dL (1.6-3.3); Glucose 95 mg/dL (70-110); LDL Cholesterol,Calculated 149.4 mg/dL (0.0-131.0); Potassium 3.9 mmol/L (3.5-5.5); Sodium 141 mmol/L (135-145); Total Bilirubin 0.5 mg/dL (0.3-1.2); Total Protein 7.1 g/dL (6.2-8.2)
== END | disposition home or self-care (01) ==
LOC: LABWHC1 08:10
PROVIDERS: ATTEND Physician Assistant
CPT/HCPCS: 36415; 80053; 80061; 84443; 85025

== ENCOUNTER → 2024-03-01 | Outpatient (CLI) | payer BC ==
--- NOTE | 2024-03-01 08:05 | US ---
EXAMINATION TYPE: US abdomen limited DATE OF EXAM: 03/01/2024 COMPARISON: CT 2018, US 2018 CLINICAL INDICATION: Female, 59 years old with history of R10.10 ABD PAIN; Patient not NPO TECHNIQUE: Grayscale and color Doppler imaging of the right upper quadrant was performed. FINDINGS: EXAM MEASUREMENTS: Liver Length: 20.5 cm Gallbladder Wall: 0.2 cm CBD: 0.3 cm Right Kidney: 11.1 x 4.3 x 4.9 cm Pancreas: obscured by overlying midline bowel gas Liver: enlarged, attenuating, increased echogenicity, heterogeneous Gallbladder: wnl Evidence for sonographic Grider's sign: no CBD: visualized portions wnl, limited by overlying bowel gas Right Kidney: wnl IMPRESSION: 1. No evidence for acute process. 2. Hepatic steatosis. [facility], , 03/01/2024 8:02 AM
== END | disposition home or self-care (01) ==
LOC: RADUSWWP 07:32
PROVIDERS: ATTEND Family Medicine
DX: K76.0 Fatty (change of) liver, not elsewhere classified (principal)
CPT/HCPCS: 76705

== ENCOUNTER → 2024-03-28 | Outpatient (CLI) | payer BC ==
--- NOTE | 2024-03-28 09:43 | XR ---
EXAMINATION TYPE: XR chest 2V DATE OF EXAM: 03/28/2024 9:34 AM COMPARISON: Chest x-ray March 19, 2021 CLINICAL INDICATION: Female, 59 years old with history of J4520,R059 ASTHMA,COUGH, TECHNIQUE: Frontal and lateral views of the chest are obtained. FINDINGS: There is no focal air space opacity, pleural effusion, or pneumothorax seen. The cardiac silhouette size is within normal limits. Spurring and scoliotic curvature in the spine is present. IMPRESSION: No acute pulmonary infiltrate. [facility], , 03/28/2024 9:41 AM
== END | disposition home or self-care (01) ==
LOC: RADXRYALE 09:13
PROVIDERS: ATTEND Physician Assistant
DX: J45.20 Mild intermittent asthma, uncomplicated (principal); R05.9 Cough, unspecified
CPT/HCPCS: 71046

== ENCOUNTER → 2024-04-13 | Outpatient (CLI) | payer BC ==
--- NOTE | 2024-04-14 08:25 | CT ---
EXAMINATION TYPE: CT chest wo con DATE OF EXAM: 04/13/2024 6:31 PM COMPARISON: r CLINICAL INDICATION: Female, 59 years old with history of R06.02 SHORTNESS OF BREATH R05.3 CHRON COU GH, cough, SOB TECHNIQUE: Axial images were obtained at 5 mm thick sections. Reconstructed images are reviewed on [employer] computer in the coronal plane. Contrast used: mL of , (none if empty) Oral contrast used: (none if empty) CT DLP: 515.7 mGycm, Automated exposure control for dose reduction was used. FINDINGS: Portion of the thyroid visualized is normal. No suspicious lung nodules or focal infiltrates are present. Tracheobronchial tree as visualized is n ormal No enlarged mediastinal or hilar adenopathy is evident. The ascending aorta diameter at the level o f the main pulmonary artery is 3.4 cm. The main pulmonary artery diameter at the bifurcation is 2.[address] sections are obtained through the upper abdomen. Abdomen is essentially unremarkable. IMPRESSION: 1. No acute pulmonary process. [facility], Workstation: [facility], 04/14/2024 8:23 AM
== END | disposition home or self-care (01) ==
LOC: RADCTMAIN 17:56
PROVIDERS: ATTEND Family Medicine
DX: R06.02 Shortness of breath (principal); R05.3 Chronic cough
CPT/HCPCS: 71250